=== PATIENT | female | born 1940 | race Caucasian/White ===

== ENCOUNTER 2016-07-25 20:04 | Emergency (ER) | payer MEDICARE ==
[~2016-07-25] VITALS: Ht 162.6 cm; Wt 62.0 kg
[2016-07-25 20:07] VITALS: BP 163/72; PULSE 73; RESP 14; TEMP 98.4; O2SAT 98
--- NOTE | 2016-07-25 20:38 | PD ---
Physical Exam Date Seen by Provider: Jul 25, 2016 Time Seen by Provider: 20:35 Narrative 76 year old female presents to the emergency department for evaluation of knee pain, left finger pain, facial pain, headache after she tripped and fell yesterday evening around 8:30 last night. She states she had positive LOC for a "few seconds". Patient on Coumadin for A-fib. Patient awaiting bed placement. Data Data Last Documented VS Vital Signs Date Time Temp Pulse Resp B/P Pulse Ox O2 Delivery O2 Flow Rate FiO2 07/25/16 20:07 98.4 73 14 163/72 98 Room Air [facility] Supervised Visit with DARREN: Loli Smith Jul 25, 2016 20:38
[2016-07-25] MEDS ORDERED: CARD360C PO (20:54)
[2016-07-25] MEDS ORDERED: LEVO125T4 PO (20:54)
[2016-07-25] MEDS ORDERED: METF500T PO (20:54)
[2016-07-25] MEDS ORDERED: COUM6TAB PO (20:54)
[2016-07-25] MEDS ORDERED: COUM5TAB PO (20:54)
--- NOTE | 2016-07-25 20:56 | PD ---
HPI Chief Complaint: Fall Time Seen by Provider: 20:46 Travel History International Travel<30 days: No Contact w/Intl Traveler<30days: No Traveled to known affect area: No History of Present Illness HPI 76-year-old female with history of A. fib on Coumadin here for evaluation of head injury after a trip and fall that occurred yesterday while getting onto an airplane from [place]. Patient reports tripping and falling forward. There was a brief loss of consciousness. She is now complaining of right facial pain , right posterior neck pain, left thumb pain, and right knee pain. According to family member who is present in the room, the patient has been acting like herself throughout the day today. No vomiting. Pain is moderate, constant, worse with movement and palpation. PFSH Past Medical History Heart Rhythm Problems: Yes (afib) Cardiovascular Problems: Yes (AFIB) Diabetes: Yes (METFORMIN) Patient Takes Glucophage: Yes Tetanus Vaccination: Unknown Past Surgical History Appendectomy: Yes Cholecystectomy: Yes Hysterectomy: Yes Other Surgery: Yes (lung surgery) Social History Alcohol Use: No Tobacco Use: No Substance Use: No Allergies-Medications (Allergen,Severity, Reaction): Coded Allergies: No Known Allergies (Unverified , 07/25/16) Reported Meds & Prescriptions Reported Meds & Active Scripts Active Reported Metformin (Metformin HCl) 500 Mg Tab 500 Mg PO BIDPC With meals Levothyroxine (Levothyroxine Sodium) 125 Mcg Tab 125 Mcg PO DAILY Cardizem CD 24 HR (Diltiazem CD 24 HR) 360 Mg Caper 360 Mg PO DAILY Coumadin (Warfarin) 6 Mg Tab 3 Mg PO THURSDAY Coumadin (Warfarin) 5 Mg Tab 5 Mg PO DAILY Review of Systems Except as stated in HPI: all other systems reviewed are Neg Physical Exam Narrative GENERAL: Well-developed, well-nourished, elderly-appearing female, sitting comfortably on stretcher, awake, alert, GCS 15. SKIN: Right periorbital ecchymosis and superficial abrasion. No lacerations. Left thumb with distal ecchymosis. Right thenar eminence with ecchymosis. HEAD: Atraumatic. Normocephalic. EYES: Pupils equal, round, 3 mm, reactive to light. EOMI. No scleral icterus. No injection or drainage. ENT: Mucous membranes pink and moist. NECK: Trachea midline. No JVD. Mild midline cervical spine tenderness without step-off. There is also mild right paravertebral tenderness. CARDIOVASCULAR: Regular rate and rhythm. RESPIRATORY: No accessory muscle use. Clear to auscultation. Breath sounds equal bilaterally. GASTROINTESTINAL: Abdomen soft, non-tender, nondistended. MUSCULOSKELETAL: Right knee with moderate edema with tenderness medially with normal range of motion. Skin exam as above. The rest of her joints and extremities are without deformity, without tenderness, with normal range of motion. NEUROLOGICAL: Awake and alert. No obvious cranial nerve deficits. Motor grossly within normal limits. Normal speech. PSYCHIATRIC: Appropriate mood and affect; insight and judgment normal. Data Data Last Documented VS Vital Signs Date Time Temp Pulse Resp B/P Pulse Ox O2 Delivery O2 Flow Rate FiO2 07/25/16 20:07 98.4 73 14 163/72 98 Room Air Orders Prothrombin Time / Inr (Pt) (07/25/16 20:49) Iv Access Insert/Monitor (07/25/16 20:49) Ecg Monitoring (07/25/16 20:49) Oximetry (07/25/16 20:49) Sodium Chloride 0.9% Flush (Ns Flush) (07/25/16 21:00) Ct Brain W/O Iv Contrast(Rout) (07/25/16 ) Ct Cerv Spine W/O Contrast (07/25/16 ) Ct Facial Bones W/O Iv Cont (07/25/16 ) Knee, Complete (4vws) (07/25/16 ) Hand, Complete ([id number]) (07/25/16 ) Hand, Complete (Rff4nhi) (07/25/16 ) Tetanus/Diphtheria Tox Adult (Tetanus/Di (07/25/16 21:00) Labs Laboratory Tests Test 07/25/16 21:00 Prothrombin Time 16.2 SEC Prothromb Time International 1.4 RATIO Ratio MDM Medical Decision Making Medical Screen Exam Complete: Yes Emergency Medical Condition: Yes Differential Diagnosis Intracranial trauma, cervical spine injury, facial bone fracture, coagulopathy Narrative Course Vital signs reviewed. INR is 1.4. CT head: No acute abnormality, some age-related atrophy. CT cervical spine: Degenerative changes, no acute bony abnormality. CT facial bones: No fracture. There is right periorbital soft tissue swelling. Right knee x-ray: Mild effusion. Chronic hypertrophic change at the patella and lateral tibial plateau. Right hand x-ray: No acute abnormality is seen. There is mild arthritic change/eater change at the second DIP joint. Left hand x-ray: No acute abnormality. There is chronic/degenerative change at the first couple metacarpal joint. Patient was made aware of all findings. She is resting comfortably. She is stable for discharge home with outpatient follow-up with her primary care physician this week. She was informed on when to return to the emergency department pitcher verbalizes understanding and agreement with plan. Diagnosis Primary Impression: Fall Qualified Code: W19.XXXA - Fall, initial encounter Additional Impressions: Closed head injury Qualified Code: S09.90XA - Closed head injury, initial encounter Facial contusion Qualified Code: S00.83XA - Facial contusion, initial encounter Referrals: Primary Care Physician 3 days Additional Instructions: Follow-up with your primary care physician this week. Return to the emergency department for worsening symptoms or any other concerns. Disposition: 01 DISCHARGE HOME Condition: Stable Anthony Solano MD Jul 25, 2016 20:56
[2016-07-25] MEDS ORDERED: SODIUM CHLORIDE 0.9% FLUSH 10 ML FLUSH IV FLUSH PRN (21:00)
[2016-07-25] MEDS ORDERED: TETANUS/DIPHTHERIA TOXOID ADULT 0.5 ML VIAL IM ONE (21:00)
[2016-07-25 21:36] LABS: INTERNATIONAL NORMALIZED RATIO 1.4 RATIO; PROTHROMBIN TIME - PATIENT 16.2 SEC (9.8-11.6)
--- NOTE | 2016-07-25 22:16 | RADRPT ---
EXAM DATE/TIME: 07/25/2016 21:24 [facility] COMPARISON: No previous studies available for comparison. INDICATIONS : Trip and fall with head trauma and loss of consciousness. RADIATION DOSE: 31.64 CTDIvol (mGy) MEDICAL HISTORY : Cardiovascular disease. Diabetes mellitus type 2. SURGICAL HISTORY : Appendectomy. Cholecystectomy.Hysterectomy.Lung surgery ENCOUNTER: Initial ACUITY: 1 day PAIN SCALE: 4/10 LOCATION: cranial TECHNIQUE: Multiple contiguous axial images were obtained of the head. Using automated exposure control and adj ustment of the mA and/or kV according to patient size, radiation dose was kept as low as reasonably a chievable to obtain optimal diagnostic quality images. FINDINGS: CEREBRUM: The ventricles and cortical sulci are widened. There some expansion of the anterior extra-axial space s. No evidence of midline shift, mass lesion, hemorrhage or acute infarction. No acute extra-axial f luid collections are seen. POSTERIOR FOSSA: The cerebellum and brainstem are intact. The 4th ventricle is midline. The cerebellopontine angle i s unremarkable. EXTRACRANIAL: The visualized portion of the orbits is intact. SKULL: The calvaria is intact. No evidence of skull fracture. CONCLUSION: No acute abnormality seen. There is some age-related atrophy present. Nacho Cline MD on July 25, 2016 at 22:13 Board Certified Radiologist. This report was verified electronically.
--- NOTE | 2016-07-25 22:22 | RADRPT ---
EXAM DATE/TIME: 07/25/2016 21:24 [facility] COMPARISON: No previous studies available for comparison. INDICATIONS : Trip and fall with head and facial trauma. RADIATION DOSE: 56.89 CTDIvol (mGy) MEDICAL HISTORY : Cardiovascular disease. Diabetes mellitus type 2. SURGICAL HISTORY : Appendectomy. Cholecystectomy.Hysterectomy.Lung surgery ENCOUNTER: Initial ACUITY: 1 day PAIN SCORE: 4/10 LOCATION: facial TECHNIQUE: Volumetric scanning of the facial bones was performed. Using automated exposure control and adjustme nt of the mA and/or kV according to patient size, radiation dose was kept as low as reasonably achiev able to obtain optimal diagnostic quality images. FINDINGS: ORBITS: The orbital and infraorbital osseous structures are intact. The retroconal structures have a normal configuration. No radiopaque foreign bodies are seen. NASAL BONE: The nasal bone and maxillary spine are intact ZYGOMATIC ARCHES: Symmetric without evidence of fracture. SINUSES: The maxillary, ethmoid and frontal sinuses are intact. No air-fluid levels seen. NASAL CAVITY: The nasal septum is intact and midline. The lacrimal ducts are intact. SOFT TISSUES: There is right periorbital soft tissue swelling. INTRACRANIAL: No intracranial air seen. CRIBIFORM PLATE: Grossly intact. CONCLUSION: No acute fracture is seen. There is right periorbital soft tissue swelling. Nacho Cline MD on July 25, 2016 at 22:19 Board Certified Radiologist. This report was verified electronically.
--- NOTE | 2016-07-25 22:26 | RADRPT ---
EXAM DATE/TIME: 07/25/2016 21:12 [facility] COMPARISON: No previous studies available for comparison. INDICATIONS : Patient fell landing on right side last night. Complains of right hand pain. MEDICAL HISTORY : None. SURGICAL HISTORY : None. ENCOUNTER: Initial ACUITY: 2 days PAIN SCORE: 2/10 LOCATION: Right hand FINDINGS: No fracture is seen. The bones and joints are normally aligned. There does appear to be some hypertr ophic change at the second DIP joint. The bones are osteopenic. CONCLUSION: No acute abnormality is seen. There is mild arthritic change/degenerative change at t he second DIP joint. Nacho Cline MD on July 25, 2016 at 22:08 Board Certified Radiologist. This report was verified electronically.
--- NOTE | 2016-07-25 22:28 | RADRPT ---
EXAM DATE/TIME: 07/25/2016 21:17 [facility] COMPARISON: No previous studies available for comparison. INDICATIONS : Patient fell last night landing on left hand. Complains of left hand pain. MEDICAL HISTORY : None. SURGICAL HISTORY : None. ENCOUNTER: Initial ACUITY: 1 day PAIN SCORE: 2/10 LOCATION: Left hand FINDINGS: No fracture is seen. The bones and joints are normally aligned. There is degenerative change seen at the first carpometacarpal joint. This is seen with joint space narrowing and hypertrophic change. The bones appear osteopenic. The soft tissues are normal. CONCLUSION: No acute abnormality is seen. There is chronic/degenerative change at the first carp ometacarpal joint. Nacho Cline MD on July 25, 2016 at 22:12 Board Certified Radiologist. This report was verified electronically.
--- NOTE | 2016-07-25 22:32 | RADRPT ---
EXAM DATE/TIME: 07/25/2016 21:24 [facility] COMPARISON: No previous studies available for comparison. INDICATIONS : Trip and fall with head trauma and neck pain. RADIATION DOSE: 14.64 CTDIvol (mGy) MEDICAL HISTORY : Cardiovascular disease. Diabetes mellitus type 2. SURGICAL HISTORY : Appendectomy. Cholecystectomy. Hysterectomy. Lung surgery ENCOUNTER: Initial ACUITY: 1 day PAIN SCALE: 4/10 LOCATION: Neck TECHNIQUE: Volumetric scanning of the cervical spine was performed. Multiplanar reconstructions i n the sagittal, coronal and oblique axial planes were performed. Using automated exposure control a nd adjustment of the mA and/or kV according to patient size, radiation dose was kept as low as reason ably achievable to obtain optimal diagnostic quality images. FINDINGS: VERTEBRAE: There is chronic endplate changes identified throughout the cervical spine. Osteophyt es are seen throughout. The cervical vertebral bodies are normal in height. ALIGNMENT: No evidence of subluxation. C2-C3: The bony spinal canal is normal in size. No evidence of disc bulge or herniation. The neura l foramina are bilaterally patent. There is mild to moderate right facet hypertrophy. C3-C4: Disc space is narrowed. There is mild disc bulge and osteophytic ridging. There is uncoverte bral hypertrophy. The neural foramina are grossly normal. C4-C5: Disc space is narrowed. There is mild disc bulge and osteophytic ridging. There is uncovert ebral hypertrophy being worse on the left. There is some narrowing of the left neural foramina. The right neural foramina appears patent. C5-C6: Disc space is narrowed. There is mild disc bulge and osteophytic ridging. These changes are asymmetric being worse on the left. There is uncovertebral hypertrophy being worse on the left. The re is minimal narrowing of the left neural foramina. The right neural foramina appears intact. C6-C7: Disc space is narrowed. There is minimal disc bulge. There is uncovertebral hypertrophy. Th e neural foramina are grossly normal. C7-T1: The bony spinal canal is normal in size. No evidence of disc bulge or herniation. The neura l foramina are bilaterally patent. CONCLUSION: Degenerative change as described above. No acute bony abnormality is seen. Nacho Cline MD on July 25, 2016 at 22:14 Board Certified Radiologist. This report was verified electronically.
--- NOTE | 2016-07-25 22:36 | RADRPT ---
EXAM DATE/TIME: 07/25/2016 21:07 [facility] COMPARISON: No previous studies available for comparison. INDICATIONS : Patient had a fall last night. Complains of right knee pain. MEDICAL HISTORY : None. SURGICAL HISTORY : None. ENCOUNTER: Initial ACUITY: 2 days PAIN SCORE: 2/10 LOCATION: Right knee FINDINGS: The knee joint is normally aligned. No fracture is seen. There is mild effusion. The re is hypertrophic spurring seen off the anterior superior aspect of the patella and at the lateral a spect of the tibial plateau. Vascular calcifications are seen. CONCLUSION: 1. Mild effusion. 2. Chronic hypertrophic change at the patella and lateral tibial plateau. Nacho Cline MD on July 25, 2016 at 22:05 Board Certified Radiologist. This report was verified electronically.
== END 2016-07-26 00:06 | disposition home or self-care (01) ==
LOC: NEPD 20:04
DX: S09.90XA Unspecified injury of head, initial encounter (principal); S00.83XA Contusion of other part of head, initial encounter; S60.012A Contusion of left thumb without damage to nail, initial encounter; S60.221A Contusion of right hand, initial encounter; M25.461 Effusion, right knee; M54.2 Cervicalgia; W01.0XXA Fall on same level from slipping, tripping and stumbling without subsequent striking against object, initial encounter; Y92.520 Airport as the place of occurrence of the external cause; I48.91 Unspecified atrial fibrillation; E11.9 Type 2 diabetes mellitus without complications; Z23 Encounter for immunization; Z79.01 Long term (current) use of anticoagulants; Z79.84 Long term (current) use of oral hypoglycemic drugs
CPT/HCPCS: 70450; 70486; 72125; 73130; 73564; 85610; 90471; 90714